=== PATIENT | female | born 1970 ===

== ENCOUNTER 2024-09-30 11:59 | Emergency (ER) | payer MEDICAID ==
[~2024-09-30] VITALS: Ht 160 cm; Wt 75.8 kg
[2024-09-30 12:27] VITALS: BP 146/85; PULSE 88; RESP 16; TEMP 97.5; O2SAT 97
== END 2024-09-30 13:19 | disposition left against medical advice (07) ==
LOC: ER 12:00
DX: Z53.21 Procedure and treatment not carried out due to patient leaving prior to being seen by health care provider (principal); Z88.0 Allergy status to penicillin